=== PATIENT | female | born 1960 | race Caucasian/White ===

== ENCOUNTER 2016-11-25 14:02 | Emergency (ER) | payer BC, OTHER ==
[~2016-11-25] VITALS: Ht 162.6 cm; Wt 107.6 kg
[2016-11-25 14:14] VITALS: TEMP 36.6; Ht 162.6 cm; Wt 107.6 kg
[2016-11-25 16:25] LABS: BUN/CREATININE RATIO 21.6 (10-20); CALCIUM 9.1 mg/dl (8.5-10.1); CREATININE 0.63 mg/dl (0.60-1.20); POTASSIUM 4.2 mmol/L (3.5-5.1)
[2016-11-25 16:29] LABS: BASO % 0.6 %; BASO ABS # 0.04 K/uL (0-0.2); COMPLETE YES; EOS % 5.9 %; HEMATOCRIT 40.2 % (37-47); IG% 0.3 %; LYMPH % 24.9 %; LYMPH ABS # 1.78 K/uL (1.2-3.4); MEAN CELL VOLUME 89.5 fL (80-100); MEAN CORPUSCULAR HEMOGLOBIN 29.2 pg (25-34); MEAN CORPUSCULAR HGB CONC 32.6 g/dl (32-36); MEAN PLATELET VOLUME 9.2 fL (7.4-10.4); MONO % 7.4 %; NEUT % 60.9 %; PLATELET COUNT 336 K/uL (130-400); RED BLOOD COUNT 4.49 M/uL (4.2-5.4); WHITE BLOOD COUNT 7.14 K/uL (4.8-10.8)
[2016-11-25] MEDS ORDERED: LEVO100T7 PO (16:29)
[2016-11-25] MEDS ORDERED: NAPR-1169 PO (16:29)
[2016-11-25] MEDS ORDERED: FLUT0.15 NAE (16:29)
--- NOTE | 2016-11-25 16:38 | DIAGNOSTIC IMAGING REPORT ---
Venous Doppler right leg RIGHT VENOUS DOPP LOWER EXT UNILAT CLINICAL HISTORY: swelling and calf pain in RLE Right pain. Edema. TECHNIQUE: Venous Doppler COMPARISON STUDY: None FINDINGS: Normal study IMPRESSION: Normal study Electronically signed by: Wes Davey M.D. 11/25/2016 4:36 PM Dictated Date/Time: 11/25/2016 4:36 PM
[2016-11-25 16:57] VITALS: BP 139/80; PULSE 61; O2SAT 95
--- NOTE | 2016-11-25 20:47 | EMERGENCY ROOM VISIT NOTE ---
History Report prepared by Glenys: Angélica Morales Under the Supervision of: Dr. Young Bustillos D.O. First contact with patient: 15:01 Chief Complaint: LEG PAIN,LEG INJURY Stated Complaint: LEG CRAMPS History of Present Illness The patient is a 55 year old female who presents to the Emergency Room with complaints of worsening right leg cramping that started last week. The patient states that she woke up from sleep 3 times last week with Bradley horses in her right leg. She states that today she developed a constant muscle spasm in her right leg. The cramping is worse when she uses her right leg. She has been trying to relieve the Bradley horses with head, drinking more water, and eating bananas but none of those have offered her any relief. The patient was evaluated at a walk-in clinic prior to coming into the ED. They recommended coming into the ED to rule out blood clots and electrolyte abnormalities. The patient denies hemoptysis, chest pain, shortness of breath, nausea, vomiting, and diarrhea. The patient also denies recent travel, recent surgeries, any history of cancer, any history of blood clots, and estrogen use. Source of History: patient Onset: last week Position: leg (right) Quality: cramping Timing: worsening Modifying Factors (Worsening): movement Modifying Factors (Relieving): other (None) Associated Symptoms: No chest pain, No SOB, No nausea, No vomiting, No diarrhea Note: no hemoptysis Review of Systems See HPI for pertinent positives & negatives. A total of 10 systems reviewed and were otherwise negative. Past Medical & Surgical Medical Problems: (1) Asthma Family History Cancer Hypertension Social History Smoking Status: Never Smoker Marital Status: Housing Status: lives with family Current/Historical Medications Scheduled Fluticasone Propionate (Nasal) (Flonase Allergy Relief), 1 SPRAY JERAMY BID Levothyroxine Sodium (Levothyroxine Sodium), 100 MCG PO DAILY Naproxen (Naprosyn), 500 MG PO BID Allergies Coded Allergies: Cephalexin (Verified Allergy, Intermediate, Colitis, 11/25/16) Sulfa Drugs (Verified Allergy, Unknown, UNKNOWN, 11/25/16) Physical Exam Vital Signs Date Time Temp Pulse Resp B/P (MAP) Pulse Ox O2 Delivery O2 Flow Rate FiO2 11/25/16 16:57 61 18 139/80 95 Room Air 11/25/16 15:48 64 18 142/76 97 Room Air 11/25/16 14:14 36.6 64 20 167/89 96 Room Air Physical Exam GENERAL: alert, sitting up in bed, well appearing, well nourished, no distress, non-toxic EYE EXAM: normal conjunctiva OROPHARYNX: no exudate, no erythema, lips, buccal mucosa, and tongue normal and mucous membranes are moist NECK: supple, no nuchal rigidity, no adenopathy, non-tender LUNGS: Clear to auscultation. Normal chest wall mechanics HEART: no murmurs, S1 normal and S2 normal ABDOMEN: abdomen soft, non-tender, normo-active bowel sounds, no masses, no rebound or guarding. BACK: Back is symmetrical on inspection and there is no deformity, no midline tenderness, no CVA tenderness. SKIN: no rashes and no bruising UPPER EXTREMITIES: upper extremities are grossly normal. LOWER EXTREMITIES: Slight tenderness in right calf, full active and passive range of motion of the right hip, knee, ankle, and EHL, DPs 2/4 bilaterally, gross sensations intact. NEURO EXAM: Normal sensorium, cranial nerves II-XII grossly intact, normal speech, no gross weakness of arms, no gross weakness of legs. Medical Decision & Procedures ER Provider Diagnostic Interpretation: Radiology results as stated below per my review and the radiologist's interpretation: Venous Doppler right leg RIGHT VENOUS DOPP LOWER EXT UNILAT FINDINGS: Normal study IMPRESSION: Normal study Electronically signed by: Wes Davey M.D. 11/25/2016 4:36 PM Dictated Date/Time: 11/25/2016 4:36 PM Laboratory Results 11/25/16 15:44 Red Blood Count 4.49, Mean Corpuscular Volume 89.5, Mean Corpuscular Hemoglobin 29.2, Mean Corpuscular Hemoglobin Concent 32.6, Mean Platelet Volume 9.2, Neutrophils (%) (Auto) 60.9, Lymphocytes (%) (Auto) 24.9, Monocytes (%) (Auto) 7.4, Eosinophils (%) (Auto) 5.9, Basophils (%) (Auto) 0.6, Neutrophils # (Auto) 4.35, Lymphocytes # (Auto) 1.78, Monocytes # (Auto) 0.53, Eosinophils # (Auto) 0.42, Basophils # (Auto) 0.04 11/25/16 15:44 Test 11/25/16 15:44 White Blood Count 7.14 K/uL (4.8-10.8) Red Blood Count 4.49 M/uL (4.2-5.4) Hemoglobin 13.1 g/dL (12.0-16.0) Hematocrit 40.2 % (37-47) Mean Corpuscular Volume 89.5 fL (80-100) Mean Corpuscular Hemoglobin 29.2 pg (25-34) Mean Corpuscular Hemoglobin Concent 32.6 g/dl (32-36) Platelet Count 336 K/uL (130-400) Mean Platelet Volume 9.2 fL (7.4-10.4) Neutrophils (%) (Auto) 60.9 % Lymphocytes (%) (Auto) 24.9 % Monocytes (%) (Auto) 7.4 % Eosinophils (%) (Auto) 5.9 % Basophils (%) (Auto) 0.6 % Neutrophils # (Auto) 4.35 K/uL (1.4-6.5) Lymphocytes # (Auto) 1.78 K/uL (1.2-3.4) Monocytes # (Auto) 0.53 K/uL (0.11-0.59) Eosinophils # (Auto) 0.42 K/uL (0-0.5) Basophils # (Auto) 0.04 K/uL (0-0.2) RDW Standard Deviation 46.3 fL (36.4-46.3) RDW Coefficient of Variation 14.1 % (11.5-14.5) Immature Granulocyte % (Auto) 0.3 % Immature Granulocyte # (Auto) 0.02 K/uL (0.00-0.02) Anion Gap 7.0 mmol/L (3-11) Est Creatinine Clear Calc Drug Dose 120.9 ml/min Estimated GFR () 117.0 Estimated GFR (Non- 101.0 BUN/Creatinine Ratio 21.6 (10-20) Calcium Level 9.1 mg/dl (8.5-10.1) Laboratory results per my review. ED Course ED COURSE: Vital signs were reviewed and showed hypertension. The patients medical record was reviewed The above diagnostic studies were performed and reviewed. ED treatments and interventions as stated above. 1510: The patient was evaluated in room C1. A complete history and physical examination was performed. 1632: Upon reevaluation, the patient is doing well. I discussed my findings with the patient and she understands and agrees with the treatment plan. Based on the patients age, coexisting illnesses, exam and lab findings the decision to treat as an outpatient was made. The patient remained stable while under my care. The patient appeared well at the time of discharge. Medical Decision Differential diagnoses includes but is not limited to DVT, musculoskeletal, infection, joint effusion, trauma, lymphedema, idiopathic, CHF. Medication Reconciliation: I attest that I have personally reviewed the patient' s current medication list. Blood pressure screening: Patient was found to have an elevated blood pressure and was referred to their primary doctor for recheck and further treatment. Patient is a 55-year-old female who presents the ER for right sided calf pain. She notes that she has been having muscle spasms intermittently. She was referred in here by the primary care doctor for possible blood clots. Duplex of the right lower extremity was unremarkable. She had good pulses. She was completely neurologically intact. CBC and BMP were unremarkable. Patient was updated in regards to findings. She was discharged follow-up with her primary care doctor with muscle cramps. Discussed with Pt concerning signs and symptoms to watch out for. Pt was instructed to follow up with their PCP and discussed with the patient their option to return to the ED at anytime for persistent or worsening symptoms. The appropriate anticipatory guidance and out-patient management, including indications for return to the emergency department, were explained at length to the patient and understood. Impression Primary Impression: Cramps of right lower extremity Scribe Attestation The scribe's documentation has been prepared under my direction and personally reviewed by me in its entirety. I confirm that the note above accurately reflects all work, treatment, procedures, and medical decision making performed by me. Departure Information Dispostion Home / Self-Care Referrals Shahla Pichardo D.O. (PCP) Forms HOME CARE DOCUMENTATION FORM, IMPORTANT VISIT INFORMATION Patient Instructions ED Muscle Pain Leg Cramps, My [facility] Additional Instructions Please follow up with your primary care doctor with in the next 24 hours. Any worsening of your symptoms, please return to the ED immediately. This includes fevers greater than 100.4, shortness of breath, chest pain, passing out, numbness or weakness in her legs or any other concerning signs or symptoms from your standpoint.
== END 2016-11-25 16:58 | disposition home or self-care (01) ==
LOC: C.EDB 14:09 → C.EDC 16:58
DX: R25.2 Cramp and spasm (principal); J45.909 Unspecified asthma, uncomplicated; Z80.9 Family history of malignant neoplasm, unspecified; Z82.49 Family history of ischemic heart disease and other diseases of the circulatory system; Z79.899 Other long term (current) drug therapy